=== PATIENT | male | born 1985 | race Caucasian/White ===

== ENCOUNTER 2021-10-20 11:54 | Emergency (ER) | payer OTHER, BC ==
[~2021-10-20] VITALS: Ht 177.8 cm; Wt 83.9 kg
[~2021-10-20 11:54] MED LIST: Augmentin 500-1 EACH PO; IBUP600 PO; Norco 5-325 Ta1 EACH PO; Prednisone20 MG PO
[2021-10-20] MEDS ORDERED: LIDO700A20 TOP (13:41)
[2021-10-20] MEDS ORDERED: IBUP600 PO (13:41)
[2021-10-20] MEDS ORDERED: Robaxin750 MG PO (13:41)
== END 2021-10-20 13:52 | disposition home or self-care (01) ==
LOC: ER 11:54
DX: M77.12 Lateral epicondylitis, left elbow (principal); M62.838 Other muscle spasm
CPT/HCPCS: 99282

== ENCOUNTER 2024-10-12 22:12 | Emergency (ER) | payer OTHER ==
[~2024-10-12] VITALS: Ht 177.8 cm; Wt 77.1 kg
[~2024-10-12 22:12] MED LIST changes: +LIDO700A20 TOP; +Robaxin750 MG PO
[2024-10-12 22:24] VITALS: BP 145/75
[2024-10-12] MEDS ORDERED: CLOBETASOL EMOL15 G1 TOP (22:31)
[2024-10-12] MEDS ORDERED: PredniSONE 20 MG Tab PO ONE (22:35)
== END 2024-10-12 23:55 | disposition home or self-care (01) ==
LOC: ER 22:12
DX: L23.7 Allergic contact dermatitis due to plants, except food (principal)
CPT/HCPCS: 99283; J7512